=== PATIENT | female | born 1950 | race Caucasian/White ===

== ENCOUNTER 2024-01-03 09:40 | Outpatient (CLI) | payer MEDICARE, SELFPAY ==
[2024-01-03 10:06] VITALS: BP 123/56; PULSE 82; RESP 16; TEMP 36.8; O2SAT 97; BMI 34.2
[2024-01-03 10:46] VITALS: BP 104/43; PULSE 69; RESP 16; TEMP 37.1; O2SAT 96
[2024-01-03 11:37] VITALS: BP 112/49; PULSE 67; RESP 16; TEMP 37.2; O2SAT 100
[2024-01-03 12:37] VITALS: BP 107/35; PULSE 67; RESP 16; TEMP 37.2; O2SAT 100
== END 2024-01-03 23:59 | disposition home or self-care (01) ==
PROVIDERS: Referring Provider Internal Medicine Hematology & Oncology; Visit Provider Internal Medicine Hematology & Oncology
DX: D61.9 Aplastic anemia, unspecified (principal)
CPT/HCPCS: 36430; 86850; 86900; 86901; 86920; 86922; J7040; P9016; A4216